=== PATIENT | male | born 1995 | race Two or more races ===

== ENCOUNTER 2018-11-27 07:13 | Emergency (ER) | payer MEDICAID ==
[~2018-11-27] VITALS: Ht 182.9 cm; Wt 72.6 kg
[2018-11-27 07:55] VITALS: BP 118/77
== END 2018-11-27 08:00 | disposition home or self-care (01) ==
LOC: ER 07:13
DX: T62.91XA Toxic effect of unspecified noxious substance eaten as food, accidental (unintentional), initial encounter (principal); R11.0 Nausea; F17.210 Nicotine dependence, cigarettes, uncomplicated; Y92.89 Other specified places as the place of occurrence of the external cause